=== PATIENT | female | born 1980 | race Hispanic/Latino ===

== ENCOUNTER 2018-04-05 13:25 | Observation (INO) | payer BC ==
[~2018-04-05] VITALS: Ht 167.6 cm; Wt 90.3 kg
[2018-04-05 14:05] LABS: APPEARANCE,URINE Cloudy (CLEAR); BILIRUBIN,URINE Negative (NEGATIVE); COLOR,URINE Yellow (YELLOW); GLUCOSE, URINE (UA) Negative (NEGATIVE); KETONES,URINE Negative (NEGATIVE); LEUKOCYTE ESTERASE ,URINE Negative (NEGATIVE); NITRATE,URINE Negative (NEGATIVE); OCCULT BLOOD,URINE Negative (NEGATIVE); PROTEIN,URINE Negative (NEGATIVE); UROBILINOGEN,URINE 0.2 mg/dL (0.2-1.0)
[2018-04-05 14:11] LABS: BACTERIA,URINE Few /HPF (None Seen); RBC,URINE 0-1 /HPF (0-1); WBC,URINE 0-1 /HPF (0-1)
[2018-04-05 14:12] LABS: SQUAMOUS EPITHELIAL CELL,UR Rare /HPF (0-2)
[2018-04-05] MEDS ORDERED: SIMETHICONE 80 MG TAB.CHEW PO SCH ×2 (15:00→17:00)
[2018-04-05] MEDS ORDERED: SIMETHICONE 80 MG TAB.CHEW ONE (15:59)
[2018-04-05] MEDS ORDERED: LACTATED RINGERS 1000ML IV SCH (16:00)
[2018-04-05] MEDS ORDERED: TERBUTALINE SULFATE VIAL 1MG/ML SQ ONE (16:14)
[2018-04-05] MEDS: TERBUTALINE SULFATE VIAL 1MG/ML SQ PRN ×2 (16:15→16:50)
[2018-04-05] MEDS ORDERED: LACTATED RINGERS 1000ML 1,000 ML IV SCH (16:15)
== END 2018-04-05 19:10 | disposition home or self-care (01) ==
LOC: EDH 13:25 → INTOOBSV 13:26 → LDH 13:26
PROVIDERS: ADMIT Obstetrics & Gynecology; ATTEND Obstetrics & Gynecology
DX: O26.892 Other specified pregnancy related conditions, second trimester (principal); R10.32 Left lower quadrant pain; O26.852 Spotting complicating pregnancy, second trimester; Z3A.26 26 weeks gestation of pregnancy
CPT/HCPCS: 81001; 96372; 99285; G0378 ×6; J3105; J7120; 96360; 96361